=== PATIENT | male | born 1965 | race Caucasian/White ===

== ENCOUNTER → 2017-10-30 | Outpatient (CLI) | payer BC ==
--- NOTE | 2017-10-30 14:19 | US ---
EXAMINATION TYPE: US scrotum with doppler. Grayscale and color Doppler Duplex imaging performed of danae felix scrotum. DATE OF EXAM: 10/30/2017 COMPARISON: NONE CLINICAL HISTORY: Testicular Mass N50.9. Patient can feel multiple palpable lumps near his left testi baljit EXAM MEASUREMENTS: TESTICLES: Right Testicle: 5.9 x 2.2 x 2.9 cm Left Testicle: 6.1 x 2.0 x 3.4 cm EPIDIDYMIS HEAD: Right Epididymis: 1.4 cm Left Epididymis: 1.1 cm Doppler performed to assess for testicular vascularity; good bilateral color flow and waveforms are s een. There is no evidence of testicular torsion. Presence of hydroceles: No Presence of varicoceles: No At the area of the patient's first palpable lump superior to the left testicle, there is a cystic are a visualized measuring 1.0 x 0.7 x 1.6 cm, probable epididymal cyst. At the area of the patient's second palpable lump, inferior to the left testicle, there is a hypoecho ic area visualized measuring 0.7 x 0.5 x 0.6 cm. There does appear to be some peripheral vascularity visualized. Right epididymal cyst visualized measuring 0.5 x 0.5 x 0.5 cm. IMPRESSION: 1. Overlying the area of palpable abnormality there is a 7 x 6 x 5 mm solid nodule which is extratest icular. No evidence of intratesticular masses seen. Rate of malignancy of extratesticular mass is low er than intratesticular. Urology consultation suggested. 2. Epididymal cysts bilaterally.
== END | disposition home or self-care (01) ==
LOC: RADUSWWP 12:54
PROVIDERS: ATTEND Internal Medicine
DX: N49.2 Inflammatory disorders of scrotum (principal); N50.3 Cyst of epididymis
CPT/HCPCS: 76870; 93975

== ENCOUNTER 2023-07-29 06:20 | Day surgery (SDC) | payer BC, OTHER ==
[2023-07-23 13:08] VITALS: BMI 24.4
--- NOTE | 2023-07-29 06:14 | P.GSHP ---
History of Present Illness H&P Date: 07/29/23 Chief Complaint: Left inguinal hernia 57-year-old male here today for elective repair left inguinal hernia. Increasing in size over the last 3 years or so. Mild soreness at times. No symptoms on the left. - Review of Systems Comment: The patient denies any acute changes in vision or hearing, no dysphagia or odynophagia, no chest pain or shortness of breath, no dysuria or hematuria, no headache, no runny nose, no rectal bleeding or melena, no unexplained weight loss Past Medical History Past Medical History: GERD/Reflux Additional Past Medical History / Comment(s): ANKYLOSING SPONDYLITIS, KIDNEY STONES, SJORGREN'S SYNDROME, INGUINAL HERNIA, DVT RT LEG-DISSOLVED ON OWN History of Any Multi-Drug Resistant Organisms: None Reported Past Surgical History: Hernia Repair Additional Past Surgical History / Comment(s): MULTIPLE LIPOMA'S REMOVED, RT INGUINAL HERNIA REPAIR WITH MESH, UMBILICAL HERNIA REPAIR, MULTIPLE COLONOSCOPIES Past Anesthesia/Blood Transfusion Reactions: Postoperative Nausea & Vomiting (PONV) Smoking Status: Never smoker - Past Family History Father Family Medical History: Deep Vein Thrombosis (DVT) Medications and Allergies Home Medications Medication Instructions Recorded Confirmed Type Ascorbic Acid [Vitamin C] 1,000 mg PO DAILY 07/23/23 07/23/23 History Aspirin EC [Ecotrin Low Dose] 81 mg PO DAILY 07/23/23 07/23/23 History Cholecalciferol (Vitamin D3) 125 mcg PO DAILY 07/23/23 07/23/23 History [Vitamin D3 (125 MCG = 5,000 IU)] Diclofenac Sodium [Voltaren XR] 100 mg PO DAILY 07/23/23 07/23/23 History Lansoprazole 30 mg PO DAILY 07/23/23 07/23/23 History Magnesium Oxide [Mag-Ox] 400 mg PO DAILY 07/23/23 07/23/23 History Zinc Gluconate [Zinc] 50 mg PO DAILY 07/23/23 07/23/23 History allopurinoL 200 mg PO DAILY 07/23/23 07/23/23 History Allergies Allergy/AdvReac Type Severity Reaction Status Date / Time bacitracin AdvReac Rash/Hives Verified 07/23/23 12:22 [From Neosporin ([id number])] neomycin AdvReac Rash/Hives Verified 07/23/23 12:22 [From Neosporin ([id number])] polymyxin B AdvReac Rash/Hives Verified 07/23/23 12:22 [From Neosporin ([id number])] Surgical - Exam Physical exam: General: Well-developed, well-nourished HEENT: Normocephalic, sclerae nonicteric Abdomen: Nontender, nondistended, reducible left inguinal hernia Extremities: No edema Neuro: Alert and oriented Assessment and Plan (1) Left inguinal hernia Narrative/Plan: 57-year-old male with left inguinal hernia. Will proceed with laparoscopic da Addie assisted repair left inguinal hernia with mesh, possible open, possible bilateral at this time. Risks of bleeding, infection, recurrence, bladder and bowel injury, numbness, nerve injury, conversion to an open procedure were discussed with the patient. The patient understands and wishes to proceed. Status: Acute Code(s): K40.90 - UNIL INGUINAL HERNIA, W/O OBST OR GANGR, NOT SPCF RECUR SNOMED Code(s): 978830776
[~2023-07-29 06:20] MED LIST: ACETAMINOPHEN TAB 500 MG TAB PO PRN; HEPARIN SODIUM,PORCINE 5,000 UNIT/ML 1 ML VIAL SQ PRN
[2023-07-29] MEDS ORDERED: SCOPOLAMINE 1 MG/72 HR PATCH TRANSDERM ONE (06:50)
[2023-07-29] MEDS ORDERED: ONDANSETRON 4 MG/2 ML VIAL IVP ONE (06:50)
[2023-07-29] MEDS ORDERED: LACTATED RINGERS 1,000 ML IV SCH (06:50)
[2023-07-29] MEDS ORDERED: DEXAMETHASONE SOD PHOSPHATE 4 MG/ML 1 ML VIAL IV ONE (06:50)
[2023-07-29] MEDS ORDERED: HYDROmorphone 0.5 MG/0.5 ML SYRINGE IVP PRN (07:00)
[2023-07-29] MEDS ORDERED: MIDAZOLAM 2 MG/2 ML VIAL IV PRN (07:00)
[2023-07-29] MEDS ORDERED: KETOROLAC 30 MG/ML 1 ML VIAL ONE (07:31)
[2023-07-29] MEDS ORDERED: fentaNYL (PF) 50 MCG/ML 2 ML AMP ONE (07:31)
[2023-07-29] MEDS ORDERED: HYDROmorphone (PF) 1 MG/ML ONE (07:31)
[2023-07-29] MEDS ORDERED: diphenhydrAMINE 50 MG/ML 1 ML VIAL ONE (07:31)
[2023-07-29] MEDS ORDERED: NEOSTIGMINE 1 MG/ML 10 ML VIAL ONE (07:31)
[2023-07-29] MEDS ORDERED: PHENYLEPHRINE 10 MG/ML VIAL ONE (07:31)
[2023-07-29] MEDS ORDERED: ROCURONIUM 10 MG/ML (5 ML VIAL) IV ONE (07:31)
[2023-07-29] MEDS ORDERED: MIDAZOLAM 2 MG/2 ML VIAL ONE (07:31)
[2023-07-29] MEDS ORDERED: GLYCOPYRROLATE 0.2 MG/ML 2 ML VIAL ONE (07:31)
[2023-07-29] MEDS ORDERED: PROPOFOL 10 MG/ML 20 ML VIAL IV ONE (07:31)
[2023-07-29] MEDS ORDERED: SUCCINYLCHOLINE CHLORIDE 200 MG/10 ML VIAL IV ONE (07:31)
[2023-07-29] MEDS ORDERED: BUPIVACAINE (PF) 0.25% 30 ML VIAL SQ ONE (08:05)
--- NOTE | 2023-07-29 09:19 | P.OP ---
Date of Procedure: 07/29/23 Procedure(s) Performed: PREOPERATIVE DIAGNOSIS: Left inguinal hernia POSTOPERATIVE DIAGNOSIS: Left direct inguinal hernia PROCEDURE: Laparoscopic repair left direct hernia with mesh SURGEON: Dr. Hoffman ANESTHESIA: General OPERATIVE PROCEDURE DETAILS: Patient was placed in the operating table in the supine position. The patient was placed under general anesthesia. The abdomen was prepped and draped in usual sterile fashion. A small curvilinear supraumbilical incision was made. The fascia was retracted anteriorly with [place] forceps. The Veress needle was inserted. The saline drop test was normal. Insufflation took place to 15 mmHg. An 8 mm trocar was placed into the peritoneal cavity. 2 additional 8 mm trochars were placed in the right upper quadrant and left upper quadrant under visualization. The robotic arms were then brought in and docked into place. The fenestrated bipolar was used in the left arm and the laparoscopic todd was utilized in the right arm. A 30 8 mm scope was used in the up position. The peritoneal cavity was inspected. The patient had a visible direct hernia on the left-hand side. No hernia on the right was seen. The peritoneum was incised in a horizontal fashion cephalad to the internal inguinal ring. Following that careful dissection of the preper itoneal space took place. This took place using both electrocautery, sharp dissection but primarily blunt dissection. Visualization of the pubic tubercle and Gabriel's ligament took place medially. Full dissection took place laterally as well. The hernia sac was fully dissected. Once we had adequate space the [id number] Progrip mesh was advanced into the preperitoneal space and flattened out appropriately to cover all potential hernia sites. The mesh was sutured to the Gabriel's ligament and then along the medial edge of the hernia defect using a running 3-0 absorbable V-Loc suture. The peritoneal defect was then closed using a absorbable 2-0 VLok suture. The hernia sac was incorporated into the peritoneal closure to help prevent future recurrence. The pneumoperitoneum was then evacuated. The skin of all 3 sites was closed using a 4-0 Monocryl stitch. Skin glue was then applied. TYPE OF MESH USED: ProGrip LOCATION OF MESH: Preperitoneal FIXATION: 3 oh V-Loc PREOPERATIVE DISCUSSION ON SMOKING CESSASTION: Yes PREOPERATIVE DISCUSSION ON MORBID OBESITY: Yes PREOPERATIVE DISCUSSION ON APPROPRIATE USE OF NARCOTIC USE: Yes PREOPERATIVE EDUCATION: Multi Modal, Smoking Cessation and Weight Loss with BMI over 35. DISPOSITION: Stable to recovery room
[2023-07-29] MEDS ORDERED: TAMSULOSIN 0.4 MG CAP.ER.24H PO STA (09:40)
[2023-07-29 09:48] VITALS: TEMP 97.4
[2023-07-29] MEDS ORDERED: ACETAMINOPHEN TAB 325 MG TAB PO SCH (12:00)
[2023-07-29 12:42] VITALS: BP 132/70; PULSE 64; RESP 17
[2023-07-29] MEDS ORDERED: IBUPROFEN 600 MG TAB PO SCH (13:00)
== END 2023-07-29 13:15 | disposition home or self-care (01) ==
LOC: OR 06:20
PROVIDERS: ATTEND Surgery
DX: K40.90 Unilateral inguinal hernia, without obstruction or gangrene, not specified as recurrent (principal); K21.9 Gastro-esophageal reflux disease without esophagitis; M35.00 Sjogren syndrome, unspecified; Z88.1 Allergy status to other antibiotic agents; Z98.890 Other specified postprocedural states; Z79.899 Other long term (current) drug therapy; Z88.8 Allergy status to other drugs, medicaments and biological substances; Z79.82 Long term (current) use of aspirin
CPT/HCPCS: 49650; J1644; J1100; J0690; J2405; J0665